=== PATIENT | male | born 1930 ===

== ENCOUNTER 2017-11-24 13:26 | Emergency (ER) | payer OTHER, MEDICARE ==
[2017-11-24 13:30] VITALS: BP 179/74; PULSE 77; RESP 18; TEMP 97.7; O2SAT 100
--- NOTE | 2017-11-24 15:25 | RAD ---
PROCEDURE: Radiographs of the Lumbar Spine. HISTORY: r/o fx COMPARISON: No prior. FINDINGS: BONES: The vertebral bodies are maintained in height. Normal alignment is maintained. . DISC SPACES: There is narrowing of the L4-5 and L5-S1 disc spaces consistent with degenerative disc disease. OTHER FINDINGS: None. IMPRESSION: No evidence of fracture. Degenerative disc disease at L4-5 and L5-S1.
--- NOTE | 2017-11-24 15:27 | RAD ---
PROCEDURE: Cervical Spine Radiographs. HISTORY: Pain. COMPARISON: None. FINDINGS: BONES: Alignment maintained. No fracture. Dens IntactTechnically limited examination. Vertebral bodies maintained in height. Normal alignment maintained. Minimal dextroscoliosis. There is extensive productive bony change about the facet joints bilaterally at multiple levels. The atlantoaxial articulation is intact. The odontoid process is intact. . DISC SPACES: Narrowing of the C3-4 disc space consistent with degenerative disc disease. The remaining intervertebral disc spaces are grossly preserved in height. SOFT TISSUES: Normal. No prevertebral soft tissue swelling. OTHER FINDINGS: None. IMPRESSION: No evidence of fracture or dislocation. Degenerative disc disease at C3-4. Multilevel facet arthropathy with productive bony change. Minimal dextroscoliosis.
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
== END 2017-11-24 16:06 | disposition home or self-care (01) ==
LOC: C.ER 13:26
DX: S13.9XXA Sprain of joints and ligaments of unspecified parts of neck, initial encounter (principal); S33.5XXA Sprain of ligaments of lumbar spine, initial encounter; V89.2XXA Person injured in unspecified motor-vehicle accident, traffic, initial encounter